=== PATIENT | female | born 1965 | race Two or more races ===

== ENCOUNTER 2022-03-05 06:40 | Emergency (ER) | payer MEDICAID ==
[~2022-03-05] VITALS: Ht 170.2 cm; Wt 74.8 kg
[2022-03-05 06:47] VITALS: BP 138/86
--- NOTE | 2022-03-05 08:58 | NUR ---
PT MD KARELY AWARE.
== END 2022-03-05 09:03 | disposition left against medical advice (07) ==
LOC: ER 06:48
DX: J02.9 Acute pharyngitis, unspecified (principal); R09.89 Other specified symptoms and signs involving the circulatory and respiratory systems

== ENCOUNTER 2023-12-10 20:07 | Emergency (ER) | payer MEDICAID ==
[~2023-12-10] VITALS: Ht 162.6 cm; Wt 70.8 kg
[2023-12-10 20:48] VITALS: BP 119/71; TEMP 98.1
[2023-12-10] MEDS ORDERED: ONDANSETRON 4 MG TAB.RAPDIS SL ONE (21:00)
[2023-12-10] MEDS ORDERED: ONDANSETRON 4 MG TAB.RAPDIS ONE (21:05)
[2023-12-10] MEDS ORDERED: ONDA4TAB5 PO (21:06)
[2023-12-10] MEDS ORDERED: LOPE2CAP40 PO (21:06)
[2023-12-10 21:07] VITALS: O2SAT 99
== END 2023-12-10 21:16 | disposition home or self-care (01) ==
LOC: ER 20:13
DX: K52.9 Noninfective gastroenteritis and colitis, unspecified (principal)
CPT/HCPCS: 99283; Q0162

== ENCOUNTER 2024-11-12 19:49 | Emergency (ER) | payer MEDICAID ==
[~2024-11-12] VITALS: Ht 157.5 cm; Wt 70.8 kg
[~2024-11-12 19:49] MED LIST: LOPE2CAP40 PO; ONDA4TAB5 PO
[2024-11-12 21:14] VITALS: TEMP 98
[2024-11-12] MEDS: LIDOCAINE 5% OINT 35.44 GM TUBE TP STA (22:47)
[2024-11-12] MEDS ORDERED: LIDOCAINE/PRILOCAINE (5GM) 5 GM TUBE TP ONE (23:00)
[2024-11-12 23:05] VITALS: BP 135/95; O2SAT 99
[2024-11-12] MEDS ORDERED: PHEN1SUP42 RC (23:16)
[2024-11-12] MEDS ORDERED: POLY17PO4 PO (23:16)
[2024-11-12] MEDS ORDERED: PHEN26CR2 RC (23:16)
== END 2024-11-12 23:43 | disposition home or self-care (01) ==
LOC: ER 19:51
DX: K64.9 Unspecified hemorrhoids (principal); K59.00 Constipation, unspecified; E78.5 Hyperlipidemia, unspecified; Z87.19 Personal history of other diseases of the digestive system

== ENCOUNTER 2024-12-15 17:54 | Emergency (ER) | payer MEDICAID ==
[~2024-12-15] VITALS: Ht 157.5 cm; Wt 70.8 kg
[~2024-12-15 17:54] MED LIST changes: +PHEN1SUP42 RC; +PHEN26CR2 RC; +POLY17PO4 PO
[2024-12-15] MEDS ORDERED: ACETAMINOPHEN ES 500 MG TABLET ONE (19:27)
[2024-12-15] MEDS: ACETAMINOPHEN ES 500 MG TABLET PO ONE (19:48)
[2024-12-15 20:45] VITALS: TEMP 98.3
[2024-12-15 21:01] VITALS: BP 121/68; O2SAT 98
== END 2024-12-15 21:08 | disposition home or self-care (01) ==
LOC: ER 17:57
DX: S00.81XA Abrasion of other part of head, initial encounter (principal); Z87.19 Personal history of other diseases of the digestive system; W01.0XXA Fall on same level from slipping, tripping and stumbling without subsequent striking against object, initial encounter; Y93.89 Activity, other specified; Y92.89 Other specified places as the place of occurrence of the external cause; Y99.8 Other external cause status
CPT/HCPCS: 70450-TC; 70486-TC; 71100-TC

== ENCOUNTER 2025-08-24 20:12 | Emergency (ER) | payer MEDICAID ==
[~2025-08-24] VITALS: Ht 162.6 cm; Wt 68.0 kg
[2025-08-24] MEDS: IV NS 0.9% 1,000 ML BAG IV ONE (20:37)
[2025-08-24 20:44] LABS: PLATELET COUNT (AUTO) 174 K/uL (150-450); RED BLOOD CELL COUNT(AUTO) 4.52 MIL/uL (4.0-5.2); RED CELL DISTRIBUTION WIDTH 14.6 % (11.5-15.0); WHITE BLOOD COUNT (AUTO) 4.8 K/uL (4.3-11.0)
[2025-08-24 20:57] LABS: APPEARANCE,URINE CLEAR (CLEAR); BLOOD, URINE TRACE-INTA Ery/uL (NEGATIVE); LEUKOCYTE ESTERASE ,URINE 1+ (NEGATIVE); NITRITE, URINE NEGATIVE (NEGATIVE); UGLUCOSE NEGATIVE (NEGATIVE)
[2025-08-24 20:58] LABS: LACTIC ACID 1.1 mmol/L (0.4-2.0)
[2025-08-24 21:03] LABS: CALCIUM, SERUM 8.4 mg/dL (8.5-10.1); CREATININE 0.7 mg/dL (0.6-1.3); SODIUM SERUM 140.0 mmol/L (136-145); UREA NITROGEN, BLOOD 20.0 mg/dL (7-18)
[2025-08-24 21:04] LABS: ADD URINE CULTURE YES; SQUAMOUS EPITHELIAL CELL,UR 0-2 /HPF (None Seen)
[2025-08-24 21:07] LABS: ASPARTATE AMINOTRANSFERASE 20.0 U/L (15-37); TOTAL PROTEIN, SERUM 7.2 g/dL (6.4-8.2)
[2025-08-24] MEDS ORDERED: LOPE2CAP40 PO (21:30)
[2025-08-24] MEDS ORDERED: ONDA4TAB11 PO (21:30)
[2025-08-24 21:38] VITALS: BP 125/70; TEMP 98; O2SAT 96
== END 2025-08-24 21:39 | disposition home or self-care (01) ==
LOC: ER 20:19
DX: A08.39 Other viral enteritis (principal); R11.0 Nausea; Z87.19 Personal history of other diseases of the digestive system
CPT/HCPCS: 99283; 96360; 85025; 80048; 87086; 83605; 83690; 80076; 81001; 36415; J7030